=== PATIENT | female | born 1995 | race Caucasian/White ===

== ENCOUNTER 2024-01-08 19:58 | Emergency (ER) | payer SELFPAY ==
[~2024-01-08] VITALS: Ht 154.9 cm; Wt 79.0 kg
[2024-01-08 20:27] VITALS: BP 180/102; PULSE 81; TEMP 99.4; O2SAT 100
[2024-01-08 22:15] VITALS: RESP 16
[2024-01-08] MEDS: KETOROLAC 15MG/ML VIAL IM ONE (22:16)
[2024-01-08] MEDS ORDERED: NAPR-1176 MT (23:17)
== END 2024-01-08 23:22 | disposition home or self-care (01) ==
LOC: ER 19:58
DX: K08.89 Other specified disorders of teeth and supporting structures (principal)
CPT/HCPCS: 81025; 96372; 99283; J1885; Z7610